=== PATIENT | female | born 1955 | race Caucasian/White ===

== ENCOUNTER → 2024-04-13 10:17 | Outpatient (REF) | payer OTHER, SELFPAY | LOC: RAD 10:17 | PROVIDERS: ATTENDING PHYSICIAN Internal Medicine Cardiovascular Disease; FAMILY PHYSICIAN Family Medicine | DX: M25.50 Pain in unspecified joint (principal) | CPT/HCPCS: 72100; 73523; 73560; 73565; 73630 ==

== ENCOUNTER → 2024-06-20 09:57 | Outpatient (REF) | payer OTHER, SELFPAY | LOC: RAD 09:57 | PROVIDERS: ATTENDING PHYSICIAN Physician Assistant; FAMILY PHYSICIAN Family Medicine | DX: R60.0 Localized edema (principal) | CPT/HCPCS: 71046 ==

== ENCOUNTER 2024-07-06 15:24 | Emergency (ER) | payer OTHER, SELFPAY ==
[2024-07-06 15:29] VITALS: BP 161/83
[2024-07-06 15:57] LABS: % Basophils 0.3 % (0-2); % Eosinophils 2.5 % (0-6); % Immature Granulocytes 0.1 % (0-0.5); % Lymphocytes 28.3 % (20.5-51.1); % Monocytes 8.2 % (1.7-9.3); % Neutrophils 60.6 % (42.2-75.2); Absolute Eosinophils 0.2 10^3/uL (0-0.7); Absolute Lymphocytes 1.9 10^3/uL (1.2-3.4); Absolute Monocytes 0.6 10^3/uL (0.1-0.6); Absolute Neutrophils 4.2 10^3/uL (1.4-6.5); Hematocrit 38.7 % (37.0-47.0); Hemoglobin 13.2 g/dL (12.0-16.0); Mean Corp Hgb Conc. 34.1 g/dL (33.0-37.0); Mean Corpuscular Hgb 32.6 pg (27.0-31.0); Mean Corpuscular Volume 95.6 fL (81.0-99.0); Mean Platelet Volume 11.2 fL (7.4-10.4); Nucleated Red Blood Cells % 0 %; Platelet Count 213 10^3/uL (130-400); Red Blood Cell Count 4.05 10^6/uL (4.20-5.40); Red Cell Dist. Width 11.7 % (11.5-14.5); White Blood Cell Count 6.9 10^3/uL (4.8-10.8)
[2024-07-06 16:10] LABS: APTT 29.2 Sec (23.4-35.0)
[2024-07-06 16:28] LABS: ALT (SGPT) 20 U/L (0-35); AST (SGOT) 29 U/L (14-36); Albumin 4.4 g/dl (3.5-5.0); Alkaline Phosphatase 102 U/L (38-126); Blood Urea Nitrogen 22 mg/dl (7-17); Calcium 9.9 mg/dl (8.4-10.2); Carbon Dioxide 24 mmol/L (22-30); Chloride 101 mmol/L (98-107); Glucose 103 mg/dl (70-99); Sodium 138 mmol/L (135-145); Total Bilirubin 0.6 mg/dl (0.2-1.3); Total Protein 6.7 g/dl (6.3-8.2); eGFR 45.35
--- NOTE | 2024-07-06 20:39 | ED.GENMED ---
History of Present Illness
General
Chief Complaint: Rectal Bleeding
Source: patient
Exam Limitations: none
Time Seen by Provider: 07/06/24 19:39
Nursing documentation reviewed up to this point in time: agreed with
History of Present Illness
History of Present Illness:
68 yr old female with history of reflux had nisin fundoplication years ago presents to the ER for evaluation. Patient reports she vomited this weekend on Thursday and Thursday several times and with vomit had coffee grounds in the vomit and in her
stool. Since then she has been drinking liquids and bone broth and has not had any more symptoms. She called her family doctor recommended to come to the ER. She does complain of burning in her upper abdomen and did have this several days ago
with symptoms. She is not on a blood thinner.
She has no other complaints. She denies feeling weak or dizzy. Denies any recent fever or chills.
Pt denies any alcohol use.
Past History
Past History
ED Past Medical History: HTN, Hypothyroidism and Other
ED Past Surgical History: Cholecystectomy, Orthopedic and Tonsilectomy
Social History
Tobacco: Former smoker
Alcohol: None
Drug: None
Personal: Single
Living: with family
Family History
Family History: Hypertension and Other (Brother had heart disease at 50. Father had heart disease at 50)
Review of Systems
Review of Systems
Allergies reviewed?: Yes
All Other Systems: ROS reviewed and negative except as documented in HPI and ROS
Constitutional: Reports no symptoms; Denies fever, fatigue or chills
Respiratory: Reports no symptoms
Cardiac: Reports no symptoms
ABD/GI: Reports abdominal pain, vomiting and other (abdominal burning , several days ago had 'coffee grounds in emesis and stool denies since thursday ); Denies nausea
: Reports no symptoms
Skin: Reports no symptoms
Neurological: Reports no symptoms
Psychiatric: Reports no symptoms
Phy Exam
General Physical Exam
General Presentation: no apparent distress
General age: appears stated age
General Skin: warm and dry
General Habitus: normal
General Mental: alert
General Hydration: appears well hydrated
Cardiovascular Exam
Cardiovascular Exam: regular rate/rhythm, no murmur and normal peripheral pulses
Pulmonary Exam
Pulmonary Exam: lungs clear and no respiratory distress
Gastrointestinal Exam
Gastrointestinal Exam: non tender, soft and other (rectal exam: no stool in rectum )
Neurological Exam
Neurological Exam: alert and oriented x3
Musculoskeletal Exam
Musculoskeletal Exam: full ROM
Skin Exam
Skin Exam: normal color and warm/dry
Psychiatric Exam
Psychiatric Exam: normal mood/affect
Course
Orders/Labs/Results
Orders:
Orders
07/06/24 15:38
Type+Screen Urgent
Complete Blood Count/With Diff Urgent
Comprehensive Metabolic Panel Urgent
PTT Urgent
07/06/24 20:24
Electrocardiogram (*1) Stat
Reason for Study: Other
Other Reason for Exam: chest pain
EKG- Treatment ONCE
07/06/24 20:36
Mag Hydrox/Al Hydrox/Simeth [Maalox] 30 ml Phenobarb/Hyoscy/Atropine/Scop [] 10 ml PO NOW
07/06/24 20:37
ABO2 Urgent
[employer] Wristband Number:
Associate notified that ABO2 has been ordered: [id number]
Date: 07/06/24
Time: 16:02
Stripper And Printer ID: [id number]
CMP [Comprehensive Metabolic Panel] Urgent
07/06/24 20:41
Pantoprazole [Protonix IV] 40 mg IV NOW STA
07/06/24 20:47
Mag Hydrox/Al Hydrox/Simeth [Maalox] 30 ml .ROUTE .STK-MED ONE
Phenobarb/Hyoscy/Atropine/Scop [] 10 ml .ROUTE .STK-MED ONE
Abnormal Lab Results
07/06/24 07/06/24
15:38 20:37
RBC 4.05 L 10^6/uL
(4.20-5.40)
MCH 32.6 H pg
(27.0-31.0)
MPV 11.2 H fL
(7.4-10.4)
Potassium 6.0 H mmol/L
(3.5-5.1)
BUN 22 H mg/dl 20 H mg/dl
(7-17) (7-17)
Creatinine 1.3 H mg/dL 1.1 H mg/dL
(0.6-1.0) (0.6-1.0)
Glucose 103 H mg/dl
(70-99)
07/06/24 15:38
07/06/24 20:37
Vital Signs
Initial and Last Documented VS:
Initial Vital Signs
Temp Pulse Resp BP Pulse Ox
98.1 F 70 18 161/83 98
07/06/24 15:29 07/06/24 15:29 07/06/24 15:29 07/06/24 15:29 07/06/24 15:29
Last Documented Vital Signs
Temp Pulse Resp BP Pulse Ox
98.1 F 67 18 125/80 99
07/06/24 15:29 07/06/24 22:05 07/06/24 22:05 07/06/24 22:05 07/06/24 22:05
Shipping Receiving Manager consulted with Physician
Shipping Receiving Manager consulted with physician?: Yes
Name of Physician Consulted: becky
MDM/Problems Addressed
Differential Diagnosis Includes:
Not limited to GI bleed, anemia
MDM/Problems Addressed:
Patient is a 68-year-old male with history of GERD with Nexium fundoplication reports she was vomiting over the weekend 3 days ago and in her vomit noticed coffee-grounds and coffee grounds in stool. She has not no episodes since Thursday. She
presents today awake alert no acute distress she has had some burning in her abdomen was sent here by her primary care physician. She is scheduled for endoscopy colonoscopy by GI doctor racheal parker on 26 July. She presents awake alert no acute
distress her hemoglobin is stable at 13.2. Initial potassium was high however repeated and normal. She had no stool on rectal exam. She was given GI cocktail here which improved her burning feeling. She also was given 1 dose of Protonix IV.
Case reviewed with GI. Stable for discharge home will DC on Protonix with patient to follow-up for outpatient endoscopy colonoscopy as with Dr. Oj parker on 26 July. Educated on concerning symptoms for return.
Chronic conditions affecting care:
GERD
*Pulse Oximetry
Patient hypoxic: no
*Critical Care Note
Total Time (30-74mins, 75-104mins- exclusive of procedures): Not Applicable
ED Attending Note
-
Portions of this chart may have been created with voice recognition software.� Occasional wrong word or��sound alike� substitutions may have occurred due to the inherent limitations of voice recognition software.
Discharge Plan
Departure
Patient Disposition: Home (Routine Discharge)
Date of Disposition: 07/06/24
Time of Disposition: 22:04
Patient with high blood pressure during this ER visit?: Yes
Condition: Fair
Covid-19: Not Applicable
Discharge Problem:
GERD (gastroesophageal reflux disease)
Instructions: Acid reflux and GERD in adults
Prescriptions:
New
pantoprazole [Protonix] 40 mg tablet,delayed release (DR/EC)
40 mg PO DAILY Qty: 20 0RF
No Action
atorvastatin 10 MG tablet
10 mg PO DAILY
levothyroxine 100 MCG tablet
100 mcg PO DAILY
carvedilol 6.25 mg Tablet
6.25 mg PO BID 30 Days Qty: 60 0RF
lidocaine [Aspercreme (lidocaine)] 4 % Adhesive Patch,Medicated
1 patch topical DAILY 15 Days Qty: 15 0RF
sucralfate 1 gram Tablet
1 g PO ACHS 14 Days Qty: 56 0RF
guaifenesin [Mucinex] 600 mg Tablet Extended Release 12hr
600 mg PO Q12 7 Days Qty: 14 0RF
pantoprazole 40 mg Tablet,Delayed Release (Dr/Ec)
40 mg PO DAILY 30 Days Qty: 30 0RF
alum-mag hydroxide-simeth [Mag-Al Plus] 200-200-20 mg/5 mL Suspension
30 ml PO QIDPRN PRN (Reason: indegestion) 7 Days Qty: 355 0RF
simethicone [Gas Relief 80 (simethicone)] 80 mg Tablet,Chewable
80 mg PO QIDPRN PRN (Reason: gas pain/discomfort belching) 7 Days Qty: 28 0RF
famotidine 20 mg tablet
20 mg PO BID Qty: 10 0RF
ondansetron 4 mg tablet,disintegrating
4 mg PO Q8H PRN (Reason: nausea and vomiting) Qty: 7 0RF
Referrals:
Jennifer Guzman MD [Active] -
Shima Melgar MD [Family Provider] -
Activity Restrictions/Additional Instructions:
As discussed start Protonix 40 mg daily. This medication was sent to your pharmacy. Avoid spicy foods, fatty foods. Follow a bland diet. Stay well-hydrated. Return however to the ER for any worsening of symptoms including abdominal pain
coffee-ground emesis vomiting blood black or dark stools or any further concerns. Follow-up with GI as scheduled for your endoscopy and colonoscopy.
Interventions
Interventions:
*Risk Screen - Suicide Last Done: 07/06/24 15:29
*General Assessment Last Done: 07/06/24 15:29
*Neglect/Abuse Screening Last Done: 07/06/24 15:29
RE-Lqpytr-Qqqvdtsqxg Assessment Last Done: 07/06/24 20:33
ED- Cardiac Assessment Last Done: 07/06/24 20:16
ED- Pulmonary Assessment Last Done: 07/06/24 20:33
Discharge Date and Time
Print Language: SPANISH
[2024-07-06 20:44] VITALS: BP 131/73
[2024-07-06] MEDS: PROTONIX IV 40 MG IV (20:49)
[2024-07-06] MEDS: MAALOX 40 PO (20:49)
[2024-07-06 21:05] LABS: ALT (SGPT) 19 U/L (0-35); AST (SGOT) 27 U/L (14-36); Albumin 4.2 g/dl (3.5-5.0); Alkaline Phosphatase 103 U/L (38-126); Blood Urea Nitrogen 20 mg/dl (7-17); Carbon Dioxide 22 mmol/L (22-30); Chloride 103 mmol/L (98-107); Glucose 86 mg/dl (70-99); Potassium 4.6 mmol/L (3.5-5.1); Sodium 141 mmol/L (135-145); Total Bilirubin 0.6 mg/dl (0.2-1.3); Total Protein 6.6 g/dl (6.3-8.2); eGFR 55.42
[2024-07-06 22:05] VITALS: BP 125/80
== END 2024-07-06 22:21 | disposition home or self-care (01) ==
LOC: EMR 15:24
PROVIDERS: Emergency Medicine; Nurse Practitioner; EMERGENCY PHYSICIAN Emergency Medicine; FAMILY PHYSICIAN Family Medicine
DX: K21.9 Gastro-esophageal reflux disease without esophagitis (principal); I10 Essential (primary) hypertension; Z87.891 Personal history of nicotine dependence
CPT/HCPCS: 99284; 96374; 80053; 85025; 85730; 86850; 86900; 86901; 93005

== ENCOUNTER → 2024-08-25 06:20 | Day surgery (SDC) | payer OTHER, SELFPAY | LOC: GI 06:20 | PROVIDERS: ATTENDING PHYSICIAN Internal Medicine Gastroenterology | DX: Z12.11 Encounter for screening for malignant neoplasm of colon (principal); D12.3 Benign neoplasm of transverse colon; K63.5 Polyp of colon; K64.0 First degree hemorrhoids; K22.2 Esophageal obstruction; K44.9 Diaphragmatic hernia without obstruction or gangrene; K31.89 Other diseases of stomach and duodenum; R10.13 Epigastric pain; R11.10 Vomiting, unspecified | CPT/HCPCS: 45385; 45380; 43239; 88305; 88342 ==

== ENCOUNTER 2024-12-02 07:03 | Emergency (ER) | payer OTHER, SELFPAY ==
[2024-12-02 07:18] VITALS: BP 148/82
[2024-12-02 07:39] LABS: % Basophils 0.5 % (0-2); % Eosinophils 6.1 % (0-6); % Immature Granulocytes 0.2 % (0-0.5); % Lymphocytes 28.6 % (20.5-51.1); % Monocytes 7.2 % (1.7-9.3); % Neutrophils 57.4 % (42.2-75.2); Absolute Eosinophils 0.3 10^3/uL (0-0.7); Absolute Lymphocytes 1.6 10^3/uL (1.2-3.4); Absolute Monocytes 0.4 10^3/uL (0.1-0.6); Absolute Neutrophils 3.2 10^3/uL (1.4-6.5); Hematocrit 40.8 % (37.0-47.0); Hemoglobin 13.6 g/dL (12.0-16.0); Mean Corp Hgb Conc. 33.3 g/dL (33.0-37.0); Mean Platelet Volume 10.4 fL (7.4-10.4); Nucleated Red Blood Cells % 0 %; Platelet Count 235 10^3/uL (130-400); Red Blood Cell Count 4.25 10^6/uL (4.20-5.40); Red Cell Dist. Width 12.5 % (11.5-14.5); White Blood Cell Count 5.6 10^3/uL (4.8-10.8)
[2024-12-02 07:49] LABS: ALT (SGPT) 23 U/L (0-35); AST (SGOT) 30 U/L (14-36); Albumin 4.2 g/dl (3.5-5.0); Alkaline Phosphatase 118 U/L (38-126); Blood Urea Nitrogen 28 mg/dl (7-17); Calcium 9.1 mg/dl (8.4-10.2); Carbon Dioxide 24 mmol/L (22-30); Chloride 104 mmol/L (98-107); Glucose 102 mg/dl (70-99); Potassium 4.4 mmol/L (3.5-5.1); Sodium 137 mmol/L (135-145); Total Bilirubin 0.6 mg/dl (0.2-1.3); Total Protein 6.5 g/dl (6.3-8.2); eGFR > 60.00
[2024-12-02 07:54] LABS: COVID-19 Antigen Negative (Negative)
[2024-12-02 07:58] LABS: Troponin I < 0.012 ng/ml
[2024-12-02 08:23] VITALS: BP 160/100
[2024-12-02 08:25] VITALS: BMI 24.2
--- NOTE | 2024-12-02 08:33 | ED.GENMED ---
History of Present Illness
General
Chief Complaint: Chest Pain
Source: patient and ambulance crew
Exam Limitations: none
Time Seen by Provider: 12/02/24 08:21
Nursing documentation reviewed up to this point in time: agreed with
History of Present Illness
History of Present Illness:
69-year-old female past medical history of hypertension hyperlipidemia, previous stomach issues and Romero fundoplication presenting to the emergency department today with concerns of chest tightness starting this morning when she was taking out the
trash. Described the chest tightness to the left chest with some radiation to her left scapular area. She immediately called EMS that gave her nitro and aspirin with improvement of symptoms. Very minimal symptoms at this point. Has had a mild
cough that she attributes to postnasal drip but denies any worsening cough recently. No fevers no recent trauma surgery immobilization, history of blood clots. She does have a history of Takotsubo cardiomyopathy. She has not had significant
symptoms since the event in 2021, 3 years ago.
Past History
Past History
ED Past Medical History: HTN, Hypothyroidism and Other
ED Past Surgical History: Cholecystectomy, Orthopedic and Tonsilectomy
Social History
Tobacco: Former smoker
Alcohol: None
Drug: None
Personal: Single
Living: with family
Family History
Family History: Hypertension and Other (Brother had heart disease at 50. Father had heart disease at 50)
Review of Systems
Review of Systems
Allergies reviewed?: Yes
All Other Systems: ROS reviewed and negative except as documented in HPI and ROS
Phy Exam
Physical Exam
Physical Exam:
GENERAL: Alert , in no apparent distress
EYE: pupils equal and reactive
NECK: Supple, no significant adenopathy.
ENT: o/p clr, mmm.
CARDIAC: Regular rate and rhythm .
LUNGS: Clear breath sounds bilaterally, no acute respiratory distress, no wheezes/rales/rhonchi
ABDOMEN: Soft, without focal tenderness, no r/g, no cvat
NEUROLOGICAL: Alert and oriented, no focal neuro deficits
SKIN: Warm and dry, skin intact.
MUSCULOSKELETAL: No edema, well perfused.
PSYCH: Normal and appropriate interaction.
Scores
Heart Score for Chest Pain Patients
STEMI patient?: No
History: Slightly or Non-Suspicious
ECG: Normal
Age: >/= 65 years
Risk Factors: >/= 3 Risk Factors or History of CAD
Troponin: </= Normal Limit
Heart Score for Chest Pain Patients: 4
Heart Score Risk: 20.3% MACE over next 6 weeks
Course
Orders/Labs/Results
Orders:
Orders
12/02/24 07:08
Electrocardiogram (*1) Urgent
Reason for Study: Chest Pain
12/02/24 07:09
EKG- Treatment ONCE
12/02/24 07:22
CXR2 [CR Chest - 2 Views ] Urgent
Comment:
Reason For Exam: chest pain
12/02/24 07:26
CBC/With Diff [Complete Blood Count/With Diff] Urgent
COVID-19 Antigen Urgent
Source: Nasal Swab
Comprehensive Metabolic Panel Urgent
Troponin I Urgent
Influenza A+B Rapid Molecular Urgent
BONG Source: Nasal Swab
Specimen Description:
12/02/24 09:08
Mag Hydrox/Al Hydrox/Simeth [Maalox] 30 ml Phenobarb/Hyoscy/Atropine/Scop [] 10 ml PO NOW
12/02/24 09:09
Mag Hydrox/Al Hydrox/Simeth [Maalox] 30 ml .ROUTE .STK-MED ONE
Phenobarb/Hyoscy/Atropine/Scop [] 10 ml .ROUTE .STK-MED ONE
12/02/24 10:22
Electrocardiogram (*1) Urgent
Reason for Study: Chest Pain
12/02/24 10:23
EKG- Treatment ONCE
12/02/24 10:24
Troponin I Urgent
Abnormal Lab Results
12/02/24
07:26
MCH 32.0 H pg
(27.0-31.0)
Eosinophils % 6.1 H %
(0-6)
BUN 28 H mg/dl
(7-17)
Glucose 102 H mg/dl
(70-99)
12/02/24 07:26
12/02/24 07:26
Vital Signs
Initial and Last Documented VS:
Initial Vital Signs
Temp Pulse Resp BP Pulse Ox
98.1 F 62 16 148/82 98
12/02/24 07:18 12/02/24 07:18 12/02/24 07:18 12/02/24 07:18 12/02/24 07:18
Last Documented Vital Signs
Temp Pulse Resp BP Pulse Ox
98.1 F 57 13 150/72 96
12/02/24 07:18 12/02/24 10:15 12/02/24 10:15 12/02/24 10:00 12/02/24 10:15
MDM/Problems Addressed
MDM/Problems Addressed:
Generally well-appearing 69-year-old female presenting with concerns of left-sided chest pressure with radiation to her upper back when she was taking out the trash this morning. Symptoms significant proved after aspirin and nitro at this point
very minimal symptoms. No recent illnesses fevers no change in cough. Vital signs are normal other than elevated blood pressure chest x-ray normal labs unremarkable troponin negative EKG unchanged. Patient's symptoms significant improved after
giving additional Maalox. Symptoms seem increasingly unlikely be related to emergent process or ACS. Repeated troponin EKG without change stable for outpatient follow-up. Return precautions given.
*Critical Care Note
Total Time (30-74mins, 75-104mins- exclusive of procedures): Not Applicable
ED Attending Note
-
Portions of this chart may have been created with voice recognition software.� Occasional wrong word or��sound alike� substitutions may have occurred due to the inherent limitations of voice recognition software.
Discharge Plan
Departure
Patient Disposition: Home (Routine Discharge)
Date of Disposition: 12/02/24
Time of Disposition: 11:11
Patient with high blood pressure during this ER visit?: No
Condition: Good
Covid-19: Not Applicable
Discharge Problem:
Chest pain
Instructions: Chest Pain DCA Follow Up
Prescriptions:
No Action
atorvastatin 10 MG tablet
10 mg PO DAILY
levothyroxine 100 MCG tablet
100 mcg PO DAILY
carvedilol 6.25 mg Tablet
6.25 mg PO BID 30 Days Qty: 60 0RF
lidocaine [Aspercreme (lidocaine)] 4 % Adhesive Patch,Medicated
1 patch topical DAILY 15 Days Qty: 15 0RF
sucralfate 1 gram Tablet
1 g PO ACHS 14 Days Qty: 56 0RF
guaifenesin [Mucinex] 600 mg Tablet Extended Release 12hr
600 mg PO Q12 7 Days Qty: 14 0RF
pantoprazole 40 mg Tablet,Delayed Release (Dr/Ec)
40 mg PO DAILY 30 Days Qty: 30 0RF
alum-mag hydroxide-simeth [Mag-Al Plus] 200-200-20 mg/5 mL Suspension
30 ml PO QIDPRN PRN (Reason: indegestion) 7 Days Qty: 355 0RF
simethicone [Gas Relief 80 (simethicone)] 80 mg Tablet,Chewable
80 mg PO QIDPRN PRN (Reason: gas pain/discomfort belching) 7 Days Qty: 28 0RF
famotidine 20 mg tablet
20 mg PO BID Qty: 10 0RF
ondansetron 4 mg tablet,disintegrating
4 mg PO Q8H PRN (Reason: nausea and vomiting) Qty: 7 0RF
pantoprazole [Protonix] 40 mg tablet,delayed release (DR/EC)
40 mg PO DAILY Qty: 20 0RF
Referrals:
Shima Melgar MD [Family Provider] -
Activity Restrictions/Additional Instructions:
You came to the emergency department today with concerns of chest discomfort. Here your reassuring assessment. Please follow closely with cardiology. Return for any worsening, new or concerning symptoms.
Interventions
Interventions:
*Risk Screen - Suicide Last Done: 12/02/24 07:18
*General Assessment Last Done: 12/02/24 09:01
*Neglect/Abuse Screening Last Done: 12/02/24 07:18
ED- Fall Risk Assessment Last Done: 12/02/24 09:04
*ED COVID-19 Vaccine History Last Done: 12/02/24 09:01
ED- Cardiac Assessment Last Done: 12/02/24 09:04
Discharge Date and Time
Print Language: TURKISH
[2024-12-02 08:56] VITALS: BP 160/81
--- NOTE | 2024-12-02 08:57 | EDRN ---
Pt came in to ER for chest pain to L of her sternum that started about 6:00 am today. Pain is throbbing per pt. Pain also shoots to back in her scapular area. Pt staes back pain is less post baby ASA 3 tabs chewable and 1 NTG by EMS. Pain is still
7/10 per pt.
[2024-12-02 09:02] VITALS: BP 154/83
[2024-12-02] MEDS: MAALOX 40 PO (09:11)
[2024-12-02 10:00] VITALS: BP 150/72
--- NOTE | 2024-12-02 10:25 | EDRN ---
Pt states no pain except tightness w/ a deep breath only.
--- NOTE | 2024-12-02 10:28 | EDRN ---
Repeat troponin drawn and sent.
--- NOTE | 2024-12-02 10:29 | EDRN ---
Pt states joy barry decreased her pain immensely.
[2024-12-02 11:00] VITALS: BP 122/71
[2024-12-02 11:03] LABS: Troponin I < 0.012 ng/ml
== END 2024-12-02 11:25 | disposition home or self-care (01) ==
LOC: EMR 07:03
PROVIDERS: Physician Assistant; EMERGENCY PHYSICIAN Emergency Medicine; FAMILY PHYSICIAN Family Medicine
DX: R07.89 Other chest pain (principal); I10 Essential (primary) hypertension; E78.5 Hyperlipidemia, unspecified; Z87.891 Personal history of nicotine dependence; Z11.52 Encounter for screening for COVID-19
CPT/HCPCS: 99285; 71046; 80053; 84484; 85025; 87502; 87811; 93005

== ENCOUNTER → 2025-05-01 10:08 | Outpatient (REF) | payer OTHER, SELFPAY | LOC: RAD 10:08 | PROVIDERS: ATTENDING PHYSICIAN Family Medicine; FAMILY PHYSICIAN Family Medicine | DX: M79.641 Pain in right hand (principal) | CPT/HCPCS: 73130 ==

== ENCOUNTER → 2025-06-21 10:12 | Outpatient (REF) | payer OTHER, SELFPAY | LOC: WDC 10:12 | PROVIDERS: ATTENDING PHYSICIAN Family Medicine | DX: N64.4 Mastodynia (principal) | CPT/HCPCS: 76642; 77062; 77066 ==

== ENCOUNTER → 2025-09-07 13:41 | Outpatient (REF) | payer OTHER, SELFPAY | LOC: HWRAD 13:41 | PROVIDERS: ATTENDING PHYSICIAN Family Medicine | DX: Z78.0 Asymptomatic menopausal state (principal); N64.4 Mastodynia | CPT/HCPCS: 77080 ==